=== PATIENT | female | born 1935 | race Caucasian/White ===

== ENCOUNTER → 2018-09-25 | Outpatient (CLI) | payer MEDICARE, BC ==
[~2018-09-25] MED LIST: ALEN70; ALEN70 PO; ASCO500 PO; ASPI81EC PO; ATOR10 PO; CALC1.25T PO; CALCIUM PO; CETI5; CHOL10002 PO; FISH1000 PO; GLUCHON PO; HYDCHL25 PO; LEVSOD100 PO; LEVSOD75 PO; LISI20 PO; LOPE2C PO; LOVA20 PO; NAPR220 PO; Ocuvite Preser1 EACH; PRAV10 PO; PROBIOTIC1 EAC1; PROBIOTIC1 EAC2 PO; PSYL5.85P; TOCO400 PO; VITAMIN D3 PO
[2018-09-25 13:47] LABS: Bilirubin, Urine Neg (Neg); Blood, Urine Neg (Neg); Glucose Qualitative, Urine Neg (Neg); Ketones, Urine Neg (Neg); Leukocyte Esterase, Urine Neg (Neg); Nitrite, Urine Neg (Neg); Protein, Urine Neg (Neg); Urobilinogen, Urine NORM (Normal); pH, Urine 6.5 (5.0-8.0)
[2018-09-25 14:09] LABS: Appearance, Urine Clear (Clear); Color, Urine Pale Yellow (P-Yellow)
== END | disposition home or self-care (01) ==
LOC: LAB 13:06 → LAB SHORT 13:06
PROVIDERS: Family Medicine
DX: R53.83 Other fatigue (principal); R53.81 Other malaise
CPT/HCPCS: 81003

== ENCOUNTER → 2019-01-17 | Outpatient (CLI) | payer MEDICARE, BC | LOC: LAB 10:12 → LAB SHORT 10:12 | DX: L08.9 Local infection of the skin and subcutaneous tissue, unspecified (principal) | CPT/HCPCS: 87070; 87205 ==

== ENCOUNTER 2020-02-17 16:54 | Inpatient (IN) | payer MEDICARE, BC, OTHER ==
[~2020-02-17] VITALS: Ht 165.1 cm; Wt 72.6 kg
[~2020-02-17 16:54] MED LIST changes: -CHOL10002 PO; +VITAMIN D31000 UNI1 PO
[2020-02-17] MEDS ORDERED: LEVSOD75 PO (17:43)
[2020-02-17 17:45] LABS: Source, Urine Clean Catch
[2020-02-17 17:48] LABS: BASOPHILS ABSOLUTE AUTO 0.01 K/mm3 (0.00-0.23); BASOPHILS PERCENT AUTO 0 % (0-2); EOSINOPHILS ABSOLUTE AUTO 0.01 K/mm3 (0.00-0.68); EOSINOPHILS PERCENT AUTO 0 % (0-6); Hematocrit 41.2 % (33.0-51.0); Hemoglobin 13.6 g/dL (11.5-16.0); IMMATURE GRAN ABSOLUTE AUTO 0.04 K/mm3 (0.00-0.10); IMMATURE GRAN PERCENT AUTO 1 % (0-1); LYMPHOCYTES ABSOLUTE AUTO 0.91 K/mm3 (0.84-5.20); LYMPHOCYTES PERCENT AUTO 13 % (21-46); MONOCYTES ABSOLUTE AUTO 0.97 K/mm3 (0.16-1.47); MONOCYTES PERCENT AUTO 14 % (4-13); Mean Corpuscular HGB 31.1 pg (26.0-34.0); Mean Corpuscular Volume 94 fL (80-100); Mean Platelet Volume 10.2 fL (9.1-12.4); NEUTROPHILS PERCENT AUTO 73 % (41-73); Platelet Count 112 K/mm3 (150-400); RDW Standard Deviation 44.9 fL (35.1-46.3); Red Blood Cell Count 4.37 M/mm3 (3.80-5.20); White Blood Cell Count 7.14 K/mm3 (4.00-11.30)
[2020-02-17 17:48] LABS: Bilirubin, Urine Neg (Neg); Blood, Urine 5+ (Neg); Glucose Qualitative, Urine Neg (Neg); Ketones, Urine 1+ (Neg); Leukocyte Esterase, Urine 1+ (Neg); Nitrite, Urine Neg (Neg); Protein, Urine 2+ (Neg); Specific Gravity, Urine 1.025 (1.003-1.022); Urobilinogen, Urine 1+ (Normal)
[2020-02-17 17:53] LABS: Appearance, Urine Clear (Clear); Color, Urine Yellow (P-Yellow)
[2020-02-17 17:55] LABS: White Blood Cells, Urine 0-2 /hpf (0-5)
[2020-02-17 17:56] LABS: Amorphous Light (0-Heavy); Bacteria Few /hpf; Hyaline Casts 0-2 /lpf (0-2); Mucus Light (0-Heavy); Squamous Epithelial Cells Rare /hpf (Few)
[2020-02-17 18:05] LABS: Alanine Aminotransfer (ALT/SGP 21 U/L (12-78); Albumin, Blood 3.2 g/dL (3.4-5.0); Albumin/Globulin Ratio 0.9 (0.8-1.8); Alk Phos 74 U/L (50-136); Anion Gap 8 mmol/L (6-16); Aspartate Aminotrans (AST/SGOT 40 U/L (12-37); Bilirubin, Total 2.2 mg/dL (0.1-1.0); Blood Urea Nitrogen 16 mg/dL (8-24); Bun/Creatinine Ratio 20.2 (12.0-20.0); CO2, Blood 23 mmol/L (21-32); Calcium, Blood 8.8 mg/dL (8.5-10.1); Chloride, Blood 100 mmol/L (98-108); Creatinine, Blood 0.79 mg/dL (0.40-1.00); Globulin, Blood 3.4 g/dL (2.2-4.0); Glomerular Filtration Rate >60 (60-); Glucose, Blood 114 mg/dL (70-99); Potassium, Blood 3.7 mmol/L (3.5-5.5); Sodium, Blood 131 mmol/L (136-145); Total Protein, Blood 6.6 g/dL (6.4-8.2)
[2020-02-17 18:42] LABS: Influenza A Negative (NEGATIVE); Influenza B Negative (NEGATIVE)
[2020-02-17] MEDS ORDERED: ATORVASTATIN CA20 MG PO (20:05)
[2020-02-17 21:06] LABS: Adenovirus Not Detected (NOT DETECT); Bordetella pertussis Not Detected (NOT DETECT); Chlamydophila pneumoniae Not Detected (NOT DETECT); Coronavirus 229E Not Detected (NOT DETECT); Coronavirus HKU1 Not Detected (NOT DETECT); Coronavirus NL63 Not Detected (NOT DETECT); Coronavirus OC43 Not Detected (NOT DETECT); Human Metapneumovirus Not Detected (NOT DETECT); Human Rhinovirus/Enterovirus Not Detected (NOT DETECT); Influenza A/2009-H1 Not Detected (NOT DETECT); Influenza A/H1 Not Detected (NOT DETECT); Influenza A/H3 Not Detected (NOT DETECT); Influenza B Not Detected (NOT DETECT); Mycoplasma pneumoniae Not Detected (NOT DETECT); Parainfluenza Virus 1 Not Detected (NOT DETECT); Parainfluenza Virus 2 Not Detected (NOT DETECT); Parainfluenza Virus 3 Not Detected (NOT DETECT); Parainfluenza Virus 4 Not Detected (NOT DETECT); Respiratory Syncytial Virus Not Detected (NOT DETECT)
--- NOTE | 2020-02-18 03:29 | NUR ---
PRIMARY CARE AT 0240, THIS PROOF LOAD MECHANIC ROUNDED ON 362 WHEN THE NURSE WAS ENTERING THE ROOM. THE PATIENT SEEMED IN NO DISTRESS AND WAS CALM WHEN THE NURSE WAS DOING VITALS. DURING THIS SHIFT THE NURSE WILL BE PRIMARY CARE FOR THIS PATIENT.
[2020-02-18 05:00] LABS: Hematocrit 37.6 % (33.0-51.0); Hemoglobin 12.4 g/dL (11.5-16.0); Mean Corpuscular HGB 30.7 pg (26.0-34.0); Mean Corpuscular Volume 93 fL (80-100); Mean Platelet Volume 10.3 fL (9.1-12.4); Platelet Count 101 K/mm3 (150-400); RDW Coefficient Variation 12.9 % (11.7-14.2); RDW Standard Deviation 44.2 fL (35.1-46.3); Red Blood Cell Count 4.04 M/mm3 (3.80-5.20); White Blood Cell Count 5.95 K/mm3 (4.00-11.30)
[2020-02-18 05:21] LABS: Alanine Aminotransfer (ALT/SGP 22 U/L (12-78); Albumin, Blood 2.7 g/dL (3.4-5.0); Albumin/Globulin Ratio 0.9 (0.8-1.8); Alk Phos 60 U/L (50-136); Anion Gap 10 mmol/L (6-16); Aspartate Aminotrans (AST/SGOT 32 U/L (12-37); Blood Urea Nitrogen 12 mg/dL (8-24); CO2, Blood 21 mmol/L (21-32); Calcium, Blood 8.1 mg/dL (8.5-10.1); Chloride, Blood 105 mmol/L (98-108); Creatinine, Blood 0.75 mg/dL (0.40-1.00); Globulin, Blood 3.1 g/dL (2.2-4.0); Glomerular Filtration Rate >60 (60-); Glucose, Blood 193 mg/dL (70-99); Potassium, Blood 3.7 mmol/L (3.5-5.5); Sodium, Blood 136 mmol/L (136-145); Total Protein, Blood 5.8 g/dL (6.4-8.2)
--- NOTE | 2020-02-18 05:21 | NUR ---
ASH COLLECTOR SUMMARY NEW ADMIT FROM THE ED TONIGHT. ADMITTED FOR RESPIRATORY INFECTION AND BEING RULED OUT FOR COVID-19. PT AAOX4 AND PLEASANT. SOB AT TIMES AND PT DOES HAVE PRODUCTIVE COUGH. COARSE LUNG SOUNDS THROUGHOUT. PT DOES HAVE AN ABRASION ON THE RIGHT SIDE OF HER FACE WELL SOME PAIN ON HER R HIP FROM A FALL AT HOME PRIOR TO ADMIT. PT IS SATTING WELL ON RA. REPEAT LACTIC ACID STEADY AT 2.3, COTTRELL OPERATOR JODY NOTIFIED AND AWARE. VSS, WILL CONTINUE TO MONITOR.
--- NOTE | 2020-02-18 18:46 | NUR ---
PT. SITTING ON EDGE OF BED PCKING AT DINNER. SAYS SHE FEELS A LITTLE BETTER BUT STILL VERY TIRED. UNABLE TO COUGH ANY SPUTUM UP FOR A SPUTUM CULTURE. HAS HAD SEVERAL LOOSE STOOLS TODAY. REPORTS SHE'S BEEN HAVING THEM FOR A WHILE. NO NOTEABLE CHANGES THIS SHIFT. HAS BEEN AFEBRILE T/O THIS SHIFT.
--- NOTE | 2020-02-19 04:44 | NUR ---
SHIFT SUMMARY ADMITTED FOR FEBRILE RESP ILLNESS, HYPOXIA. DNR CODE. DROPLET/CONTACT FOR R/O COVID. SPUTUM SAMPLE RETRIEVED THIS SHIFT. SOME LOOSE STOOLS AT BEGINNING OF SHIFT. SHE IS A STANDBY ASSIST TO THE BATHROOM. INCONTINENT/CONTINENT OF BM. SHE LIVES WITH HUBBY & DAUGHTER. SHE IS LACTOSE INTOLERANT. SHE IS ON RA, COUGHS/COARSE LUNGS, A&O X4, WHISPERS - DUE TO THYROIDECTOMY, AFEBRILE THIS SHIFT. HOPEFUL FOR DC TODAY. HX: THYROID CANCER, FALLS AT HOME, HTN, HYPOTHYROID, HYPERLIPIDEMIA. TELEMETRY IS MONITORING: NSR @ 77 BPM.
[2020-02-19] MEDS ORDERED: ACET325 PO (10:22)
[2020-02-19] MEDS ORDERED: ROBITUSSIN NIG237 ML PO (10:24)
[2020-02-19] MEDS ORDERED: LOPE2C PO (10:25)
[2020-02-19] MEDS ORDERED: LEVFLO500 PO (10:26)
--- NOTE | 2020-02-19 14:10 | NUR ---
PT. DISCHARGED HOME WITH SPOUSE. PT. GIVEN INSTRUCTIONS ON KEEPING SELF AND FAMILY SAFE UNTIL THE RESULTS OF THE COVID TEST COME IN. LET HER KNOW THE HEALTH DEPT. WOULD CALL AND LET HER KNOW. I NOTIFIED RANDELL SIU RN OF PT'S DISCHARGE.
== END 2020-02-19 14:10 | disposition home or self-care (01) | DRG 872 ==
LOC: ER 16:54 → MEDS 16:55 → ER 20:47 → MEDS 20:47 → ENPENDDIS 02-19 11:02 → MEDS 02-19 14:10
PROVIDERS: Emergency Medicine; ADMIT Internal Medicine
DX: A41.9 Sepsis, unspecified organism (principal); J20.9 Acute bronchitis, unspecified; I10 Essential (primary) hypertension; E03.9 Hypothyroidism, unspecified; Z85.850 Personal history of malignant neoplasm of thyroid; E78.5 Hyperlipidemia, unspecified; Z66 Do not resuscitate
CPT/HCPCS: 0099U; 36415; 71045; 80053; 81001; 83605; 84145; 85025; 85027; 86140; 87040; 87070; 87077; 87086; 87186; 87205; 87804; 93005; 93010; 94640; 94667; 94760; 96361; 96365; 96367; 96372; 96375; 96376; 99285-25; A9270; G0378; J0456; J0696; J1650; J2930; J7030; J7050; P9612

== ENCOUNTER → 2020-12-24 | Outpatient (CLI) | payer MEDICARE, BC ==
[~2020-12-24] MED LIST changes: +ACET325 PO; +ATORVASTATIN CA20 MG PO; +LEVFLO500 PO; +ROBITUSSIN NIG237 ML PO
== END | disposition home or self-care (01) ==
LOC: LAB SHORT 11:00 → PLD 11:00
DX: Z08 Encounter for follow-up examination after completed treatment for malignant neoplasm (principal); L08.9 Local infection of the skin and subcutaneous tissue, unspecified; L72.8 Other follicular cysts of the skin and subcutaneous tissue; L57.8 Other skin changes due to chronic exposure to nonionizing radiation; Z85.828 Personal history of other malignant neoplasm of skin
CPT/HCPCS: 87070; 87205

== ENCOUNTER 2021-09-22 06:09 | Day surgery (SDC) | payer MEDICARE, BC ==
[~2021-09-22] VITALS: Ht 154.9 cm; Wt 70.9 kg
[~2021-09-22 06:09] MED LIST changes: +COLON HEALTH PO; +EUTHYROX75 MC1 PO; +FURO20 PO; +Ocuvite Preser1 EACH PO; +TURMERIC500 M2 PO; +[UNRECOGNIZED DRUG - OTHER] INJ; +[UNRECOGNIZED DRUG - OTHER] INJ; +[UNRECOGNIZED DRUG - OTHER] PO
--- NOTE | 2021-09-22 06:20 | NUR ---
PT ARRIVES VIA WC WITH . USES CANE. History, Chart, Medications and Allergies reviewed before start of procedure. Lungs clear T/O to Auscultation. Patient confirms NPO status and agrees with scheduled surgery. Pre-Op teaching done. Pt verbalizes understanding.
--- NOTE | 2021-09-22 09:18 | NUR ---
09/22/21 0918 Abraham Song NO SPECIMEN PER
--- NOTE | 2021-09-22 17:17 | NUR ---
SHIFT SUMMARY PATIENT NEW ADMIT TO UNIT POST OP L TKA. ALERT AND ORIENTED. TOLERATING REGULAR DIET. AMBULATED IN [place] WITH SBA, FWW, AND GAIT BELT. DENIES PAIN. VOIDING WELL, SALINE LOCKED. AQUACEL AND LISA WRAP TO LEFT KNEE. POLAR PACK IN PLACE AND ELEVATED. TUMS PRN FOR HEARTBURN. WILL REPORT TO PAPER BAG MACHINE OPERATOR RN.
[2021-09-23 05:01] LABS: BASOPHILS ABSOLUTE AUTO 0.01 K/mm3 (0.00-0.23); BASOPHILS PERCENT AUTO 0 % (0-2); EOSINOPHILS PERCENT AUTO 0 % (0-6); Hematocrit 32.2 % (33.0-51.0); Hemoglobin 10.8 g/dL (11.5-16.0); IMMATURE GRAN ABSOLUTE AUTO 0.02 K/mm3 (0.00-0.10); IMMATURE GRAN PERCENT AUTO 0 % (0-1); LYMPHOCYTES PERCENT AUTO 11 % (21-46); MONOCYTES ABSOLUTE AUTO 0.81 K/mm3 (0.16-1.47); MONOCYTES PERCENT AUTO 9 % (4-13); Mean Corpuscular HGB 31.9 pg (26.0-34.0); Mean Corpuscular HGB Conc 33.5 g/dL (31.5-36.5); Mean Corpuscular Volume 95 fL (80-100); NEUTROPHILS ABSOLUTE AUTO 7.01 K/mm3 (1.96-9.15); NEUTROPHILS PERCENT AUTO 79 % (41-73); Platelet Count 112 K/mm3 (150-400); RDW Coefficient Variation 13.2 % (11.7-14.2); RDW Standard Deviation 45.3 fL (35.1-46.3); Red Blood Cell Count 3.39 M/mm3 (3.80-5.20); White Blood Cell Count 8.85 K/mm3 (4.00-11.30)
[2021-09-23 05:28] LABS: Anion Gap 7 mmol/L (6-16); Blood Urea Nitrogen 14 mg/dL (8-24); Bun/Creatinine Ratio 17.9 (12.0-20.0); CO2, Blood 22 mmol/L (21-32); Calcium, Blood 8.8 mg/dL (8.5-10.1); Chloride, Blood 106 mmol/L (98-108); Creatinine, Blood 0.78 mg/dL (0.40-1.00); Glomerular Filtration Rate >60 (60-); Glucose, Blood 128 mg/dL (70-99); Magnesium, Blood 1.7 mg/dL (1.6-2.4); Sodium, Blood 135 mmol/L (136-145)
--- NOTE | 2021-09-23 05:46 | NUR ---
SHIFT SUMMARY NO ACUTE CHANGES OVERNIGHT. POD1 L TKA. PT AMBULATING IN THE HALLWAY X 1 LAST NIGHT, 1SBA/FWW/GB. PT REPORTS MINIMAL PAIN T/O SHIFT BUT STARTED TO FEEL SOME INCREASING PAIN THIS MORNING 5/10 PAIN LEVEL. TOLERATING PO INTAKE. DENIES N/V. PT DENIES DIZZINESS. VOIDING WELL. PAIN MANAGED WITH TYLENOL, TORADOL AND OXY. VSS. L KNEE WRAPPED WITH LISA WRAP AND POLAR PACK IN PLACED, EVEVATED. PT DENIES N/T. AOX4. USE CALL LIGHT APPROPRIATELY. CALL LIGHT WITHIN REACH. ANTICIPATING DISCHARGE TODAY. WILL PROVIDE REPORT TO ONCOMING NURSE.
[2021-09-23] MEDS ORDERED: ENOX40I SC (08:59)
[2021-09-23] MEDS ORDERED: OXAYDO5 M1 PO (09:00)
[2021-09-23] MEDS ORDERED: SULTRIDS PO (09:02)
[2021-09-23] MEDS ORDERED: PROM25 PO (09:02)
--- NOTE | 2021-09-23 10:44 | NUR ---
1030 discharge discharged to home with . pt and her verbalize understanding of discharge instructions. pt malorie regular diet and denies nausea. ambulating in room and hallway with walker and standby asssit. pt reports pain is well controlled. patient and her have no concerns with discharging to home. dressing supplies provided to patient
[2021-09-25] MEDS ORDERED: AMOCLA875 PO (12:50)
[2021-09-25] MEDS ORDERED: ACET325 PO (12:50)
[2021-09-25] MEDS ORDERED: BENZ100A PO (12:52)
[2021-09-25] MEDS ORDERED: ALBU2.5V5 INH (12:52)
[2021-09-25] MEDS ORDERED: PANT20 PO (12:53)
[2021-09-25] MEDS ORDERED: PROBIOTIC1 EA13 PO (12:54)
[2021-09-25] MEDS ORDERED: Prednisone10 MG PO (12:55)
== END 2021-09-23 10:30 | disposition home or self-care (01) ==
LOC: ORSCMMR 06:09 → SURS 10:45 → ORSCMMR 10:45
PROVIDERS: Orthopaedic Surgery
PROC: 8E0YXBZ Computer Assisted Procedure of Lower Extremity (ICD-10-PCS; principal; 2021-09-22 07:30)
PROC: 0SRD0J9 Replacement of Left Knee Joint with Synthetic Substitute, Cemented, Open Approach (ICD-10-PCS; principal; 2021-09-22 07:30)
DX: M17.12 Unilateral primary osteoarthritis, left knee (principal); I10 Essential (primary) hypertension; E78.5 Hyperlipidemia, unspecified; E03.9 Hypothyroidism, unspecified; Z79.899 Other long term (current) drug therapy
CPT/HCPCS: 36415; 73560-LT; 80048; 83735; 85025; 97110; 97110-CQ; 97116; 97116-CQ; 97162; 97530; 97530-CQ; A9270; C1713; C1776; J0171; J0690; J0735; J1650; J1885; J2250; J2370; J2795; J3370; J7120

== ENCOUNTER 2021-11-17 11:15 | Day surgery (SDC) | payer MEDICARE, BC ==
[~2021-11-17] VITALS: Ht 154.9 cm; Wt 66.7 kg
[~2021-11-17 11:15] MED LIST changes: +ALBU2.5V5 INH; +AMOCLA875 PO; +BENZ100A PO; +ENOX40I SC; +OXAYDO5 M1 PO; +PANT20 PO; +PROBIOTIC1 EA13 PO; +PROM25 PO; +Prednisone10 MG PO; +SULTRIDS PO
--- NOTE | 2021-11-17 12:11 | NUR ---
History, Chart, Medications and Allergies reviewed before start of procedure. Lungs clear T/O to Auscultation. Patient confirms NPO status and agrees with scheduled surgery. Pre-Op teaching done. Pt verbalizes understanding. Patient States Post-Procedure ride home has been arranged.
--- NOTE | 2021-11-17 13:20 | NUR ---
11/17/21 1320 Florencio Chairez NO ANTIBIOTICS INDICATED PER .
--- NOTE | 2021-11-17 14:25 | NUR ---
Dressing to procedure site clean, dry, intact with no visible drainage, swelling, erythema or bruising noted.
--- NOTE | 2021-11-17 14:44 | NUR ---
Discharge instructions reviewed with patient. Patient verbalizes understanding. Copy given to patient to take home.
--- NOTE | 2021-11-17 14:54 | NUR ---
Discharged via wheelchair to private car for ride home.
== END 2021-11-17 14:55 | disposition home or self-care (01) ==
LOC: ORSCMMR 11:15 → ORD 15:00
PROVIDERS: Orthopaedic Surgery
PROC: 0SNDXZZ Release Left Knee Joint, External Approach (ICD-10-PCS; principal; 2021-11-17 13:15)
DX: T84.82XD Fibrosis due to internal orthopedic prosthetic devices, implants and grafts, subsequent encounter (principal); Z96.652 Presence of left artificial knee joint; I10 Essential (primary) hypertension; Z79.899 Other long term (current) drug therapy
CPT/HCPCS: J2704; J3010; J7120

== ENCOUNTER 2022-06-11 09:43 | Emergency (ER) | payer MEDICARE, BC ==
[~2022-06-11] VITALS: Ht 154.9 cm; Wt 63.5 kg
== END 2022-06-11 11:41 | disposition home or self-care (01) ==
LOC: ER 09:43
DX: S09.90XA Unspecified injury of head, initial encounter (principal); I10 Essential (primary) hypertension; E78.5 Hyperlipidemia, unspecified; W19.XXXA Unspecified fall, initial encounter; Z79.899 Other long term (current) drug therapy; Z96.653 Presence of artificial knee joint, bilateral
CPT/HCPCS: 70450

== ENCOUNTER → 2022-07-15 | Outpatient (CLI) | payer MEDICARE, BC | END | disposition home or self-care (01) | LOC: LAB 17:01 → LAB SHORT 17:01 | DX: R30.0 Dysuria (principal) | CPT/HCPCS: 87077; 87086; 87186 ==